=== PATIENT | male | born 2000 | race Two or more races ===

== ENCOUNTER 2022-03-22 17:15 | Emergency (ER) | payer MEDICAID, OTHER ==
[~2022-03-22] VITALS: Ht 170.2 cm; Wt 150.0 kg
[2022-03-22 17:38] VITALS: BP 147/91
[2022-03-22 18:39] LABS: Basophils # (auto) 0.1 10 ^3/uL (0-0.2); Basophils % (auto) 0.7 % (0.0-2.0); Eosinophils # (auto) 0.3 10 ^3/uL (0-0.8); Eosinophils % (auto) 3.5 % (0.0-7.0); Hematocrit 46.7 % (41.0-53.0); Hemoglobin 15.3 g/dL (13.5-17.5); Lymphocytes # (auto) 1.4 10 ^3/uL (0.4-5.4); Lymphocytes % (auto) 14.2 % (10.0-50.0); Mean Corpuscular Hemoglobin 29.6 pg (28.0-32.0); Mean Corpuscular Hgb Conc. 32.7 g/dL (32.0-36.0); Mean Corpuscular Volume 90.4 fL (80.0-100.0); Monocytes # (auto) 0.6 10 ^3/uL (0-1.3); Monocytes % (auto) 6.3 % (0.0-12.0); Neutrophils # (auto) 7.4 10 ^3/uL (1.6-8.6); Neutrophils % (auto) 75.3 % (37.0-80.0); Red Blood Cells 5.17 10^6/uL (4.5-5.90); Red Cell Distribution Width 13.2 % (11.8-14.3); White Blood Cell 9.9 10^3/uL (4.4-10.8)
[2022-03-22 18:55] LABS: Albumin 4.4 g/dL (3.4-5.0); BUN/Creatinine Ratio 18.4; Calcium 8.8 mg/dL (8.5-10.1)
[2022-03-22 18:58] LABS: Bilirubin, Total 0.8 mg/dL (0.2-1.0); Salicylate < 1.7 mg/dL (2.8-20.0); Total Protein 7.8 g/dL (6.4-8.2)
[2022-03-22 19:00] LABS: Acetaminophen < 2.0 ug/mL (10-30)
== END 2022-03-22 19:46 | disposition home or self-care (01) ==
LOC: ER 17:15 → EDBD 17:15 → ER 19:46
DX: T40.411A Poisoning by fentanyl or fentanyl analogs, accidental (unintentional), initial encounter (principal); F17.210 Nicotine dependence, cigarettes, uncomplicated; Y92.89 Other specified places as the place of occurrence of the external cause
CPT/HCPCS: 36415; 80053; 80329; 85025; 93005

== ENCOUNTER 2022-07-12 14:03 | Emergency (ER) | payer MEDICAID ==
[~2022-07-12] VITALS: Ht 172.7 cm; Wt 78.2 kg
[2022-07-12 14:03] VITALS: BP 125/78
== END 2022-07-12 18:49 | disposition left against medical advice (07) ==
LOC: ER 14:03
DX: M79.644 Pain in right finger(s) (principal); Z53.21 Procedure and treatment not carried out due to patient leaving prior to being seen by health care provider

== ENCOUNTER 2024-10-26 12:24 | Emergency (ER) | payer MEDICAID ==
[~2024-10-26] VITALS: Ht 172.7 cm; Wt 70.4 kg
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
[2024-10-26 15:36] VITALS: RESP 16
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
[2024-10-26] MEDS: TETANUS-DIPTH-ACEL PERTUSSIS 0.5ML SYR Tdap IM ONE (18:25)
[2024-10-26] MEDS: cefTRIAXone SOD 1,000 MG VL IM ONE (18:25)
--- NOTE | 2024-10-26 19:23 | ED.PDOC ---
History of Present Illness Chief Complaint: Suicidal Time Seen by MD: 19:13 Primary Care Provider: NONE Allergies: Coded Allergies: NO KNOWN ALLERGIES (Unverified , 03/22/22) Mode of Arrival: EMS Past Medical History PAST MEDICAL HISTORY: Denies Surgical History: Denies all surgeries Family History Family History: Reviewed,noncontributory to illness, No family hx of Cancer, No family hx of DM, No family hx of Heart belia, No family hx of HTN, No family hx ofKidney belia, No family hx of Liver belia, No family hx of Lung belia, No family hx of Stroke Social History Smoker: Cigarettes Alcohol: Denies ETOH Use Drugs: Marijuana, Other Lives In: Home Physical Exam General Appearance: No Apparent Distress HEENT: NOT DONE Neck: NOT DONE Respiratory: NOT DONE Cardiovascular: NOT DONE Breast Exam: Deferred Gastrointestinal: NOT DONE Genitalia: Deferred Pelvic: Deferred Rectal: Deferred Extremities: Normal range of motion Neurologic: No Motor Deficits, Normal Affect Cerebellar Function: NOT DONE Reflexes: NOT DONE Skin: NOT DONE Lymphatic: NOT DONE Was a procedure done? Was a procedure done?: No Differential Dx Considerations may include: Depression, anxiety X-Ray, Labs, Meds, VS Vital Signs Date Time Temp Pulse Resp B/P (MAP) Pulse Ox O2 Delivery O2 Flow Rate FiO2 10/26/24 15:36 16 Room Air* 0 21 10/26/24 13:02 98.3 94 16 141/93 (109) 99 Lab Test 10/26/24 13:25 Range/Units Plasma/Serum Blood Alcohol < 3.0 <10 mg/dL Current Medications Medications (Trade) Dose Ordered Sig/Randal Route Start Time Stop Time Status Last Admin Diphtheria/ Tetanus/Acell Pertussis (Boostrix T-Dap) 0.5 ml ONCE ONCE IM 10/26/24 15:45 10/26/24 15:46 DC 10/26/24 18:25 Ceftriaxone Sodium (Rocephin) 1,000 mg ONCE ONCE IM 10/26/24 15:45 10/26/24 15:46 DC 10/26/24 18:25 Time of 1ST Reevaluation: 12:34 Reevaluation 1ST: Improved Patient Education/Counseling: Diagnosis, Treatment Family Education/Counseling: No Family Present Departure 1 Departure Time of Disposition: 20:25 (Patient was cleared for discharge by psychiatry. Patient is medically cleared as well discharge patient home with outpatient follow up) Impression: Primary Impression: Suicidal ideation Additional Impression: Depression Qualified Codes: F32.A - Depression, unspecified Disposition: 01 HOME / SELF CARE / HOMELESS Condition: Stable Additional Instructions: Please follow up with the regular doctors continue to take your regular med ications. Critical Care Note Critical Care Time?: No Stability Stability form required: ROSENDO Fermin MD Oct 26, 2024 19:23
[2024-10-26 19:40] VITALS: PULSE 69; RESP 18; O2SAT 98
[2024-10-26 21:10] VITALS: BP 122/87; PULSE 76; RESP 18; TEMP 98.6; O2SAT 98
== END 2024-10-26 21:36 | disposition home or self-care (01) ==
LOC: ER 12:24 → EDBD 12:24 → ER 21:36
DX: S10.93XA Contusion of unspecified part of neck, initial encounter (principal); F32.A Depression, unspecified; R45.851 Suicidal ideations; F17.210 Nicotine dependence, cigarettes, uncomplicated; F15.90 Other stimulant use, unspecified, uncomplicated; X58.XXXA Exposure to other specified factors, initial encounter; Y93.89 Activity, other specified; Y92.89 Other specified places as the place of occurrence of the external cause; Y99.8 Other external cause status
CPT/HCPCS: 36415; 80320; 90471; 90715; 96372; 99285; J0696

== ENCOUNTER 2025-02-17 00:20 | Emergency (ER) | payer MEDICAID ==
[~2025-02-17] VITALS: Ht 172.7 cm; Wt 74.1 kg
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
[2025-02-17 00:36] VITALS: BP 119/85; PULSE 97; RESP 16; TEMP 98.7; O2SAT 99
[2025-02-17] MEDS: LET TOPICAL SOLN 5 ML TOP ONE (00:53)
== END 2025-02-17 03:01 | disposition home or self-care (01) ==
LOC: ER 00:20
DX: S01.511A Laceration without foreign body of lip, initial encounter (principal); F17.210 Nicotine dependence, cigarettes, uncomplicated; X58.XXXA Exposure to other specified factors, initial encounter; Y93.89 Activity, other specified; Y92.89 Other specified places as the place of occurrence of the external cause; Y99.8 Other external cause status
CPT/HCPCS: 40650